=== PATIENT | female | born 1940 | race Caucasian/White ===

== ENCOUNTER 2020-08-09 14:21 | Inpatient (IN) | payer OTHER ==
[~2020-08-09] VITALS: Ht 172.7 cm; Wt 60.8 kg
[2020-08-09 15:31] LABS: HEMOGLOBIN 13.2 gm/dl (12.3-15.3); RED BLOOD COUNT 4.13 M/UL (4.00-5.10); WHITE BLOOD COUNT 8.4 K/UL (4.5-11.0)
[2020-08-09 16:08] LABS: BUN/CREATININE RATIO 19 (0-10)
[2020-08-10 04:05] LABS: HEMOGLOBIN 12.7 gm/dl (12.3-15.3); WHITE BLOOD COUNT 7.7 K/UL (4.5-11.0)
[2020-08-10 04:28] LABS: BUN/CREATININE RATIO 23 (0-10)
[2020-08-10] MEDS ORDERED: ESCITALOPRAM OX20 MG PO (09:52)
[2020-08-10] MEDS ORDERED: MELOXICAM15 MG PO (09:52)
[2020-08-10] MEDS ORDERED: MIRTAZAPINE45 MG PO (09:53)
[2020-08-10] MEDS ORDERED: QUETIAPINE FUMA50 MG PO (09:53)
[2020-08-10] MEDS ORDERED: LEVOTHYROXINE25 MCG PO (09:54)
[2020-08-10] MEDS ORDERED: AMLODIPINE BESYL5 MG PO (09:54)
[2020-08-10] MEDS ORDERED: ATORVASTATIN CA20 MG PO (09:55)
[2020-08-10] MEDS ORDERED: METOPROLOL SUC100 MG PO (09:55)
[2020-08-10] MEDS ORDERED: OMEPRAZOLE40 MG PO (09:55)
[2020-08-10] MEDS ORDERED: TRELEGY ELLIPT1 EACH INH (09:56)
[2020-08-11 06:14] LABS: BUN/CREATININE RATIO 28 (0-10)
[2020-08-14 12:43] LABS: BUN/CREATININE RATIO 30 (0-10)
[2020-08-15] MEDS ORDERED: ATORVASTATIN CA20 MG PO (08:44)
[2020-08-15] MEDS ORDERED: ASPIRIN EC81 MG PO (08:44)
[2020-08-15] MEDS ORDERED: IPRAT-ALBUT 0.5-3 ML NEB (08:51)
--- NOTE | 2020-08-15 12:38 | NUR ---
REPORT CALLED TO [facility], SPOKE WITH ZAID AT NURSING STATION 2 @ 11:30.
== END 2020-08-15 12:29 | DRG 65 ==
LOC: ER1 14:21 → MED SURG 4 19:43 → CDU 19:43 → MED SURG 4 19:43
PROVIDERS: Internal Medicine Infectious Disease; Physician Assistant; ADMIT Internal Medicine
DX: I63.9 Cerebral infarction, unspecified (principal); I69.354 Hemiplegia and hemiparesis following cerebral infarction affecting left non-dominant side; E03.9 Hypothyroidism, unspecified; Z88.0 Allergy status to penicillin; J44.9 Chronic obstructive pulmonary disease, unspecified; F32.9 Major depressive disorder, single episode, unspecified; Z20.822 Contact with and (suspected) exposure to COVID-19; E78.5 Hyperlipidemia, unspecified; Z79.899 Other long term (current) drug therapy; I10 Essential (primary) hypertension; E87.6 Hypokalemia
CPT/HCPCS: ECHO; 36415; 70470; 70551; 71045; 80048; 80053; 81001; 82550; 82553; 82607; 83735; 83874; 84132; 84443; 84484; 85025; 85610; 93005; 93306; 93880; 94640; 94664; 94760; 97110-GP-CQ; 97116-GP-CQ; 97162; 97530; 97530-GP-CQ; 99285; G0378; Q9963; U0002